=== PATIENT | male | born 1950 | race Caucasian/White ===

== ENCOUNTER 2021-12-16 17:06 | Observation (INO) | payer OTHER ==
[2021-12-16] MEDS ORDERED: SODIUM CHLORIDE 0.9% 500 ML INFUS.BAG IV ONE (18:52)
[2021-12-16 20:11] LABS: URINE APPEARANCE CLEAR; URINE BILIRUBIN NEGATIVE (NEGATIVE); URINE COLOR YELLOW; URINE GLUCOSE (UA) NEGATIVE (NEGATIVE); URINE KETONE NEGATIVE (NEGATIVE); URINE LEUK ESTERASE NEGATIVE (NEGATIVE); URINE NITRITE NEGATIVE (NEGATIVE); URINE PROTEIN NEGATIVE (NEGATIVE); URINE UROBILINOGEN 0.2 mg/dL (0.2-1.0)
[2021-12-16 20:12] LABS: BASO % 0.3 % (0-2.0); EOS % 0.2 % (0-4.5); HEMOGLOBIN 13.3 GM/dL (11.7-16.9); MCH 29.1 pg (25.7-33.7); MCHC 33.3 g/dl (32.0-35.9); MEAN CELL VOLUME 87.4 fl (80-96); MONO % 6.8 % (3.8-10.2); NEUT % 76.7 % (42.8-82.8); PLATELET COUNT 186 10^3/uL (134-434); RBC 4.57 M/mm3 (4.00-5.60); WHITE BLOOD COUNT 11.4 K/mm3 (4.0-10.0)
[2021-12-16 20:29] LABS: ALBUMIN 4.4 g/dl (3.4-5.0); CALCIUM 9.4 mg/dL (8.5-10.1)
[2021-12-16 20:30] LABS: BLOOD UREA NITROGEN 15.5 mg/dL (7-18); MAGNESIUM 2.2 mg/dL (1.8-2.4)
[2021-12-16 20:32] LABS: CREATININE 1.4 mg/dL (0.55-1.3)
[2021-12-16 20:34] LABS: BILIRUBIN,TOTAL 0.4 mg/dL (0.2-1); TOT PROT 7.9 g/dl (6.4-8.2)
[2021-12-16 20:38] LABS: N-TERMINAL BNP 92.8 pg/ml (5-125)
[2021-12-17] MEDS ORDERED: ACETAMINOPHEN 325 MG TABLET (FP) PO PRN (01:12)
[2021-12-17] MEDS ORDERED: MELATONIN 5 MG TABLETS PO SCH (01:15)
[2021-12-17 04:17] VITALS: BMI 22.6
[2021-12-17] MEDS ORDERED: LORazepam 0.5 MG TABLET PO PRN (06:25)
[2021-12-17 07:27] LABS: HEMATOCRIT 39.8 % (35.4-49); HEMOGLOBIN 13.6 GM/dL (11.7-16.9); MCH 29.7 pg (25.7-33.7); MCHC 34.1 g/dl (32.0-35.9); MEAN CELL VOLUME 87.1 fl (80-96); MEAN PLT VOLUME 8.8 fl (7.5-11.1); PLATELET COUNT 173 10^3/uL (134-434); RBC 4.57 M/mm3 (4.00-5.60); RDW 14.8 % (11.9-15.9); WHITE BLOOD COUNT 8.9 K/mm3 (4.0-10.0)
[2021-12-17 07:49] LABS: CALCIUM 9.2 mg/dL (8.5-10.1)
[2021-12-17 07:50] LABS: ALBUMIN 3.8 g/dl (3.4-5.0); BLOOD UREA NITROGEN 12.1 mg/dL (7-18)
[2021-12-17 07:53] LABS: CREATININE 1.4 mg/dL (0.55-1.3)
[2021-12-17 07:54] LABS: BILIRUBIN,TOTAL 0.9 mg/dL (0.2-1); TOT PROT 7.5 g/dl (6.4-8.2)
[2021-12-17] MEDS ORDERED: SERTRALINE HCL 50 MG TABLET (FP) PO SCH (10:00)
[2021-12-17] MEDS ORDERED: PANTOPRAZOLE 40 MG TABLET PO SCH (10:00)
[2021-12-17] MEDS ORDERED: NIFEdipine E.R. 90 MG TABLET PO SCH ×2 (10:00)
[2021-12-17] MEDS ORDERED: ENOXAPARIN NA (PORCINE) 40 MG/0.4 ML DISP.SYRIN SQ SCH (10:00)
[2021-12-17] MEDS ORDERED: ASPIRIN COATED 81 MG TABLET.EC PO SCH (10:00)
[2021-12-17] MEDS ORDERED: NIFEdipine E.R. 30 MG TABLET PO SCH (10:00)
[2021-12-17 11:51] VITALS: TEMP 98.7
[2021-12-17 14:37] VITALS: BP 147/79; PULSE 87
[2021-12-17] MEDS ORDERED: risperiDONE 0.25 MG TABLET PO SCH (22:00)
== END 2021-12-17 16:17 | disposition home or self-care (01) ==
LOC: JER 17:06 → JERBED 23:23 → J4W 12-17 02:51
PROVIDERS: ADMIT Hospitalist; ATTEND Internal Medicine
PROC: 3E023GC Introduction of Other Therapeutic Substance into Muscle, Percutaneous Approach (ICD-10-PCS; principal; 2021-12-16)
PROC: 3E033GC Introduction of Other Therapeutic Substance into Peripheral Vein, Percutaneous Approach (ICD-10-PCS; 2021-12-16)
PROC: 3E0337Z Introduction of Electrolytic and Water Balance Substance into Peripheral Vein, Percutaneous Approach (ICD-10-PCS; 2021-12-16)
DX: K21.9 Gastro-esophageal reflux disease without esophagitis (principal); R25.1 Tremor, unspecified; F41.9 Anxiety disorder, unspecified; R44.0 Auditory hallucinations; R44.1 Visual hallucinations; I10 Essential (primary) hypertension; Z29.9 Encounter for prophylactic measures, unspecified
CPT/HCPCS: 36415; 71046-TC-FY; 71275-TC; 80053; 80061; 81003; 83036; 83605; 83690; 83735; 83880; 84443; 84484; 85025; 85027; 87086; 93005; 93010; 93306-TC; 96372; 96374; 97116-GP; 97161-GP; 99285-25; C9803-CS; G0378; Q9967; U0003; U0005

== ENCOUNTER 2022-09-11 17:50 | Emergency (ER) | payer OTHER ==
[2022-09-11 17:55] VITALS: BP 138/71; PULSE 96; RESP 18; TEMP 97; BMI 19.8
[2022-09-11] MEDS ORDERED: ACETAMINOPHEN 500 MG TABLET (FP) PO ONE (20:19)
[2022-09-11] MEDS ORDERED: ACETAMINOPHEN 325 MG TABLET (FP) ONE (20:36)
== END 2022-09-11 21:02 | disposition home or self-care (01) ==
LOC: JER 17:50
DX: S42.002A Fracture of unspecified part of left clavicle, initial encounter for closed fracture (principal); W18.2XXA Fall in (into) shower or empty bathtub, initial encounter
CPT/HCPCS: 73030-TC-LT-FY; 73060-TC-LT-FY; 99283-25

== ENCOUNTER 2024-04-15 09:14 | Emergency (ER) | payer OTHER ==
[2024-04-15 09:28] VITALS: RESP 16; BMI 24.2
[2024-04-15] MEDS: LORazepam 2 MG/ML SDV VIAL IVPUSH ONE (09:30)
[2024-04-15] MEDS: SODIUM CHLORIDE 1,000 ML IV SCH (10:16)
[2024-04-15] MEDS ORDERED: TENECTEplase 50 MG VIAL IVPUSH ONE ×2 (10:19→10:27)
[2024-04-15] MEDS ORDERED: NORMAL SALINE FLUSH 0.9% 5 ML SYRINGE IVPUSH SCH (10:30)
[2024-04-15 10:40] LABS: BASO % 0.3 % (0-2.0); EOS % 0.5 % (0-4.5); HEMATOCRIT 39.2 % (35.4-49); HEMOGLOBIN 12.9 GM/dL (11.7-16.9); LYMPH % 10.5 % (8-40); MCH 30.1 pg (25.7-33.7); MEAN CELL VOLUME 91.2 fl (80-96); MEAN PLT VOLUME 9.3 fl (7.5-11.1); MONO % 4.5 % (3.8-10.2); NEUT % 84.2 % (42.8-82.8); PLATELET COUNT 189 10^3/uL (134-434); WHITE BLOOD COUNT 13.2 K/mm3 (4.0-10.0)
[2024-04-15] MEDS: LACTATED RINGERS SOLUTION 1000 ML INFUS.BAG IV ONE (10:46)
[2024-04-15 10:47] LABS: VENOUS BASE EXCESS 1.6 mmol/L (-2-2); VENOUS O2 SATURATION 55.1 % (70-80); VENOUS PH 7.34 (7.310-7.410)
[2024-04-15 10:49] VITALS: PULSE 83
[2024-04-15] MEDS ORDERED: VANCOMYCIN 1,000 MG in DEXTROSE 5%-WATER - 250 ML IVPB ONE (11:32)
[2024-04-15] MEDS ORDERED: PIPERACILLIN/TAZOB 3.375 GM 3.375 GM in DEXTROSE 5%-WATER - 50 ML IVPB ONE (11:32)
[2024-04-15 11:56] LABS: POTASSIUM 4.4 mmol/L (3.5-5.1)
[2024-04-15 11:59] LABS: CALCIUM 10.1 mg/dL (8.5-10.1)
[2024-04-15 12:00] LABS: ALBUMIN 3.8 g/dl (3.4-5.0); BLOOD UREA NITROGEN 31.9 mg/dL (7-18)
[2024-04-15 12:03] LABS: CREATININE 1.5 mg/dL (0.55-1.3)
[2024-04-15 12:04] LABS: BILIRUBIN,TOTAL 0.5 mg/dL (0.2-1); TOT PROT 7.3 g/dl (6.4-8.2)
[2024-04-15] MEDS ORDERED: levETIRAcetam 500 MG/5 ML INJECTION VIAL IVPB ONE (12:10)
[2024-04-15 12:45] VITALS: TEMP 98
[2024-04-15 14:12] VITALS: BP 136/90
== END 2024-04-15 13:03 | disposition short-term general hospital (02) ==
LOC: JER 09:14
DX: I63.9 Cerebral infarction, unspecified (principal); I10 Essential (primary) hypertension; R29.732 NIHSS score 32; G40.909 Epilepsy, unspecified, not intractable, without status epilepticus
CPT/HCPCS: 0241U-QW; 70450-TC; 70496-TC; 70498-TC; 80053; 80061; 82550; 82803; 83036; 83605; 84484; 85025; 93005; 93010; 99291; Q9967